=== PATIENT | female | born 1940 ===

== ENCOUNTER 2022-09-25 08:45 | Inpatient (IN) | payer OTHER ==
[~2022-09-25] VITALS: Ht 149.9 cm; Wt 49.4 kg
[2022-09-25] MEDS ORDERED: PREDNIS PO (10:19)
[2022-09-25] MEDS ORDERED: COZAAR50 MG PO (10:19)
[2022-09-25] MEDS ORDERED: ULTRAM50 MG PO (10:20)
[2022-09-25] MEDS ORDERED: SIMVAST PO (10:20)
[2022-09-25] MEDS ORDERED: COZAAR100 MG PO (10:20)
[2022-09-25] MEDS ORDERED: HORIZANT300 MG PO (10:21)
[2022-09-25] MEDS ORDERED: FOLIC A PO (10:21)
[2022-09-25] MEDS ORDERED: RESTORIL15 M1 PO (10:21)
[2022-09-25] MEDS ORDERED: [UNRECOGNIZED DRUG - OTHER] PO (10:23)
[2022-09-30] MEDS ORDERED: PREDNISONE 5MG (08:26)
[2022-09-30] MEDS ORDERED: FOLIC ACID0.8 M1 (08:26)
[2022-09-30] MEDS ORDERED: SIMVASTATIN20 MG (08:26)
[2022-09-30] MEDS ORDERED: PEPCID AC20 MG (08:27)
[2022-10-04] MEDS ORDERED: LEVOFLOXACIN500 MG PO (07:48)
[2022-10-04] MEDS ORDERED: INTESTINEX680 M1 PO (07:48)
[2022-10-04] MEDS ORDERED: NEURONTIN300 MG PO (07:49)
[2022-10-04] MEDS ORDERED: HIBICLENS118 ML TOP (07:49)
== END 2022-10-04 12:39 | disposition home or self-care (01) | DRG 331 ==
LOC: SURG 09-28 10:16 → SURH 09-30 08:45
PROVIDERS: ADMIT Surgery; ATTEND Surgery
PROC: 30233N1 Transfusion of Nonautologous Red Blood Cells into Peripheral Vein, Percutaneous Approach (ICD-10-PCS; 2022-09-28)
PROC: 02H633Z Insertion of Infusion Device into Right Atrium, Percutaneous Approach (ICD-10-PCS; 2022-09-29)
PROC: 0DTP4ZZ Resection of Rectum, Percutaneous Endoscopic Approach (ICD-10-PCS; 2022-09-30)
PROC: 0DTN4ZZ Resection of Sigmoid Colon, Percutaneous Endoscopic Approach (ICD-10-PCS; 2022-09-30)
PROC: 0DBQ4ZZ Excision of Anus, Percutaneous Endoscopic Approach (ICD-10-PCS; 2022-09-30)
PROC: 07BB4ZZ Excision of Mesenteric Lymphatic, Percutaneous Endoscopic Approach (ICD-10-PCS; 2022-09-30)
PROC: 0D1N4Z4 Bypass Sigmoid Colon to Cutaneous, Percutaneous Endoscopic Approach (ICD-10-PCS; principal; 2022-09-30 09:15)
DX: C21.1 Malignant neoplasm of anal canal (principal); D50.0 Iron deficiency anemia secondary to blood loss (chronic); I12.9 Hypertensive chronic kidney disease with stage 1 through stage 4 chronic kidney disease, or unspecified chronic kidney disease; N18.30 Chronic kidney disease, stage 3 unspecified; Z20.822 Contact with and (suspected) exposure to COVID-19; Z79.52 Long term (current) use of systemic steroids